=== PATIENT | male | born 1965 | race Caucasian/White ===

== ENCOUNTER 2020-05-29 12:47 | Outpatient (CLI) | payer OTHER, SELFPAY ==
[2020-05-29 13:30] LABS: Estimated Glomerular Filt Rate > 60
== END 2020-05-29 12:48 | disposition home or self-care (01) ==
LOC: ANHIMG 12:56
PROVIDERS: PCP Internal Medicine; Visit Provider Otolaryngology
DX: H91.22 Sudden idiopathic hearing loss, left ear (principal); Z53.8 Procedure and treatment not carried out for other reasons
CPT/HCPCS: 36415

== ENCOUNTER 2024-10-18 10:08 | Outpatient (CLI) | payer BC, SELFPAY ==
--- NOTE | ~2024-10-18 | CT_ITS ---
EXAMINATION: CT chest abdomen pelvis w con DATE: 10/18/2024 11:09 INDICATION: Unexplained weight loss TECHNIQUE: Computed tomography (CT) of the chest, abdomen, and pelvis was performed with 100 mL Omnip aque-350 intravenous contrast. Automated exposure control and iterative reconstruction technique were employed. The dose-length product was 523.13 mGy-cm. COMPARISON: None FINDINGS: CHEST CT: Mild discoid atelectasis in the dependent aspect of the bilateral lower lobes. There are a few scatte red bilateral <3 mm calcified and not definitively calcified pulmonary nodules. No pneumonia, pulmona ry edema or pleural effusion. Heart size is normal. Small pericardial effusion. Thoracic aorta is nor mal in caliber with no dissection. No pathologically enlarged thoracic lymphadenopathy. Mild thoracic spondylosis. ABDOMEN/PELVIS CT: Small region of subtle focal hepatic steatosis along the ligamentum teres and gallbladder fossa. Gall bladder, spleen, pancreas, bilateral adrenal glands and left kidney are normal. 1.3 cm avidly enhanci ng nodule at the lateral mid right kidney consistent with renal cell carcinoma. Bowels are unremarkab le including a normal appendix. Bladder is normal. Mild prostatomegaly measuring 4.3 x 3.7 cm. Very s mall fat-containing left inguinal hernia. No free intraperitoneal gas or fluid. No pathologically enl arged abdominal or pelvic lymphadenopathy. Likely physiologic mild anterior wedging at L1. Moderate l umbosacral and mild lumbar spondylosis. IMPRESSION: 1. 1.3 cm it attenuation likely enhancing right renal mass consistent with renal cell carcinoma. Woul d consider obtaining either a noncontrast CT or pre and postcontrast MRI to definitively confirm enha ncement and exclude calcification or other etiology for the high attenuation. 2. A few <3 mm bilateral pulmonary nodules most likely sequela of old granulomatous disease. If the p atient is low risk for lung cancer, no follow-up is needed. If the patient is high risk (i.e., histor y of smoking or asbestos or significant radiation exposure), optional follow-up chest CT could be con sidered at 12 months. 3. Prostatomegaly. 4. Very small fat-containing left inguinal hernia. Reviewed, dictated and finalized at location A. OLIDS MANAGEMENT TECHNICIAN IMPRESSION: 1. 1.3 cm it attenuation likely enhancing right renal mass consistent with samantha l cell carcinoma. Would consider obtaining either a noncontrast CT or pre and p ostcontrast MRI to definitively confirm enhancement and exclude calcification o r other etiology for the high attenuation. 2. A few <3 mm bilateral pulmonary nodules most likely sequela of old granuloma tous disease. If the patient is low risk for lung cancer, no follow-up is neede d. If the patient is high risk (i.e., history of smoking or asbestos or signifi cant radiation exposure), optional follow-up chest CT could be considered at 12 months. 3. Prostatomegaly. 4. Very small fat-containing left inguinal hernia.
[2024-10-18 10:42] LABS: Hematocrit 40.1 % (40.0-54.0); Hemoglobin 13.3 g/dL (14.0-18.0); Immature Reticulocyte Fraction 18.4 % (2.0-16.52); Mean Corpuscular HGB Conc 33.2 g/dL (32-36); Mean Corpuscular Hemoglobin 28.1 pg (27.0-31.0); Mean Corpuscular Volume 84.6 fL (78.0-102.0); Mean Platelet Volume 9.1 fl (8.7-11.0); Platelet Count Result 722 K/mm3 (150-420); Red Blood Count 4.74 M/mm3 (4.70-6.10); Red Cell Distribution Width 12.7 % (11.6-14.4); Reticulocyte Hemoglobin Conten 28.2 pg (28.0-35.0); Reticulocyte Percent 2.08 % (0.50-1.50); White Blood Count 15.2 K/mm3 (4.8-10.8)
[2024-10-18 10:43] LABS: Add Urine Microscopic? YES; Appearance Urine Clear (Clear); Bilirubin Urine 2+ (Negative); Blood Urine Negative (Negative); Color Urine Yellow (Yellow); Glucose Urine UA 2+ (Negative); Ketones Urine 3+ (Negative); Leukocyte Esterase Ur Negative (Negative); Nitrate Urine Negative (Negative); Protein Urine 1+ (Negative); Specific Grav Ur 1.025 (1.010-1.020)
[2024-10-18 10:53] LABS: RBC Urine None seen /hpf (0-2)
[2024-10-18 10:54] LABS: Bacteria Urine Rare /hpf; WBC Urine None seen /hpf (0-3)
[2024-10-18 11:46] LABS: Lactic Acid Reflex 1.6 mmol/L (0.4-2.0)
[2024-10-18 12:09] LABS: Alanine Aminotransferase 60 U/L (16-63); Albumin Level 2.3 g/dL (3.4-5.0); Alkaline Phosphatase 126 U/L (46-116); Bilirubin,Total 0.9 mg/dL (0.00-1.00); Blood Urea Nitrogen 16 mg/dL (7-18); Calcium 9.7 mg/dL (8.5-10.1); Carbon Dioxide 25 mmol/L (21-32); Estimated Glomerular Filt Rate > 60; Free T4 Free Thyroxine 1.61 ng/dL (0.76-1.46); Glucose 321 mg/dL (70-99); Lactate Dehydrogenase 116 U/L (85-227); Osmolality Calculated 283 mOsm/kg (285-295); Sodium 130 mmol/L (136-145); Thyroid Stimulating Hormone 0.03 uIU/mL (0.36-3.74); Total Protein 8.2 g/dL (6.4-8.2)
[2024-10-18 13:07] LABS: Free T3 1.98 pg/mL (2.18-3.98); Prostate Specific Antigen 1.2 ng/mL (< OR = 4.0); Vitamin B12 709 pg/mL (193-986)
[2024-10-18 13:42] LABS: Ferritin > 1000 ng/mL (26-388); Potassium 4.5 mmol/L (3.5-5.1)
[2024-10-18 13:43] LABS: Anion Gap 15 mmol/L (4-12); Chloride 90 mmol/L (98-108)
[2024-10-18 13:45] LABS: Aspartate Amino Transferase 25 U/L (15-37)
[2024-10-18 13:55] LABS: Iron 19 ug/dL (65-175)
[2024-10-19 12:02] LABS: C-Peptide 1.74 ng/mL (0.80-3.85)
[2024-10-19 16:48] LABS: Insulin Level Total 6.1 uIU/mL
[2024-10-19 17:09] LABS: Red Blood Cell Folate 505 ng/mL RBC (>280)
[2024-10-27 00:15] LABS: Glutamic acid decarboxylase AA <5 IU/mL (<5)
== END 2024-10-18 10:09 | disposition home or self-care (01) ==
PROVIDERS: PCP Internal Medicine; Visit Provider Internal Medicine
DX: D64.9 Anemia, unspecified (principal); E87.1 Hypo-osmolality and hyponatremia; E11.65 Type 2 diabetes mellitus with hyperglycemia; R63.4 Abnormal weight loss; R61 Generalized hyperhidrosis; D72.829 Elevated white blood cell count, unspecified
CPT/HCPCS: 36415; 71260; 74177; 80053; 81001; 82607; 82728; 82747; 83525; 83540; 83605; 83615; 84153; 84439; 84443; 84481; 84681; 85027; 85046; 85055; 87040; 87086; 87088; Q9967

== ENCOUNTER 2024-10-19 10:25 | Outpatient (CLI) | payer BC, SELFPAY ==
--- NOTE | ~2024-10-19 | US_ITS ---
EXAMINATION: US soft tissue head and neck DATE: 10/19/2024 10:46 INDICATION: Hyperthyroidism TECHNIQUE: Multiple ultrasound images of the thyroid were obtained. COMPARISON: None. FINDINGS: The right thyroid lobe measures 3.6 x 1.3 x 1.2 cm. The left thyroid lobe measures 3.2 x 1.5 x 1.5 c m. There is a 4-5 mm solid hyperechoic nodule which is taller than wide with lobular margins (TI-RAD S 5, highly suspicious , FNA if >=1.0 cm, annual followup is >0.5 cm). There is a second 7 mm wide th an tall solid isoechoic nodule with lobular margins (TI-RADS 4, moderately suspicious , FNA if >=1.5 cm, annual followup is >=1 cm). There is normal echotexture, echogenicity and vascular flow throughou t the remainder of the thyroid gland. IMPRESSION: 1. A couple subcentimeter left thyroid nodules which remain below size criteria for either biopsy or follow-up. Reviewed, dictated and finalized at location A. ICE ORDER TAKER
== END 2024-10-19 10:26 | disposition home or self-care (01) ==
PROVIDERS: PCP Internal Medicine; Visit Provider Internal Medicine
DX: E05.90 Thyrotoxicosis, unspecified without thyrotoxic crisis or storm (principal); E04.2 Nontoxic multinodular goiter
CPT/HCPCS: 76536

== ENCOUNTER 2024-10-24 12:11 | Outpatient (CLI) | payer BC, SELFPAY ==
[2024-10-24 12:20] LABS: Occult Blood Negative (Negative)
== END 2024-10-24 12:12 | disposition home or self-care (01) ==
PROVIDERS: PCP Internal Medicine; Visit Provider Internal Medicine
DX: D50.9 Iron deficiency anemia, unspecified (principal)
CPT/HCPCS: 82272

== ENCOUNTER 2024-10-25 11:25 | Outpatient (CLI) | payer BC, SELFPAY ==
[2024-10-25 11:34] LABS: Occult Blood Negative (Negative)
== END 2024-10-25 11:26 | disposition home or self-care (01) ==
PROVIDERS: PCP Internal Medicine; Visit Provider Internal Medicine
DX: D50.9 Iron deficiency anemia, unspecified (principal)
CPT/HCPCS: 82272

== ENCOUNTER 2024-10-27 10:36 | Outpatient (CLI) | payer BC, SELFPAY ==
[2024-10-27 10:52] LABS: Occult Blood Negative (Negative)
== END 2024-10-27 10:37 | disposition home or self-care (01) ==
PROVIDERS: PCP Internal Medicine; Visit Provider Internal Medicine
DX: D50.9 Iron deficiency anemia, unspecified (principal)
CPT/HCPCS: 82272